=== PATIENT | male | born 1990 | race Caucasian/White ===

== ENCOUNTER 2018-06-17 20:18 | Emergency (ER) | payer SELFPAY ==
[2018-06-17 20:43] VITALS: BP 166/109
--- NOTE | 2018-06-18 00:21 | Emergency Department Report ---
[facility] Chief Complaint: Eye Problems Stated Complaint: EYE PAIN Time Seen by Provider: 06/18/18 00:15 Duration: 3 Days Side: Left Severity: moderate Symptoms: Yes Eye Itching, Yes Eye Redness, Yes Eye Pain, Yes Mucous Drainage, Yes Purulent Drainage, Yes Fever, No Blurred Vision, No Preceding URI, No H/O Allergic Rhinitis, No Contact Lens Use, No Trauma ED Review of Systems ROS: Stated complaint: EYE PAIN Other details as noted in HPI Constitutional: denies: chills, fever Eyes: eye pain, eye discharge. denies: vision change, other ENT: denies: ear pain, throat pain, dental pain, hearing loss, epistaxis, congestion Respiratory: no symptoms reported. denies: cough, shortness of breath, wheezing Cardiovascular: denies: chest pain, palpitations, edema Endocrine: no symptoms reported Gastrointestinal: denies: abdominal pain, nausea, diarrhea Genitourinary: denies: urgency, dysuria Musculoskeletal: as per HPI Skin: denies: rash, lesions Neurological: denies: headache, weakness, paresthesias Psychiatric: denies: anxiety, depression Hematological/Lymphatic: denies: easy bleeding, easy bruising ED Past Medical Hx - Past Medical History Previous Medical History?: No - Surgical History Past Surgical History?: Yes Additional Surgical History: right eye, wisdom teeth - Social History Smoking Status: Never Smoker Substance Use Type: None - Medications Home Medications: Home Medications Medication Instructions Recorded Confirmed Last Taken Type Cetirizine HCl [ZyrTEC] 10 mg PO DAILY PRN #30 tab.rapdis 06/18/18 Unknown Rx Ibuprofen [Motrin 800 MG tab] 800 mg PO Q8HR PRN #30 tablet 06/18/18 Unknown Rx Polymyxin B Sulf/Trimethoprim 2 ml OS Q3H #10 ml 06/18/18 Unknown Rx [Polytrim Eye Drops] [facility] Exam - Exam General: Vital signs noted. No distress. Alert and acting appropriately. Eye Exam: Both Injection, Neither Abnormal Pupil, Neither EOMI HEENT: Yes Nasal Congestion, Yes Pharyngeal Erythema Lungs: Yes Clear Lung Sounds, Yes Good Air Exchange, No Wheezes, No Cough, No Nasal Flaring, No Retractions, No Use of Accessory Muscles ED Course Vital Signs 06/17/18 20:30 Temperature 98.4 F Pulse Rate 84 Respiratory 18 Rate Blood Pressure 166/109 O2 Sat by Pulse 98 Oximetry ED Medical Decision Making - Radiology Data Radiology results: report reviewed, image reviewed this is conjunctivitis with hordeolum left upper eye lid, plan: zyrtec , polytrim, ibuprofen follow up with pcp in 2-3days. pt verbalized agreement and understanding of same . Critical care attestation.: If time is entered above; I have spent that time in minutes in the direct care of this critically ill patient, excluding procedure time. ED Disposition Clinical Impression: Conjunctivitis Qualifiers: Conjunctivitis type: acute Acute conjunctivitis type: bacterial Laterality: left Qualified Code(s): H10.32 - Unspecified acute conjunctivitis, left eye Disposition: TO HOME OR SELFCARE Is pt being admited?: No Does the pt Need Aspirin: No Condition: Critical Instructions: Conjunctivitis (ED) Prescriptions: Cetirizine HCl [ZyrTEC] 10 mg PO DAILY PRN #30 tab.rapdis PRN Reason: daily Ibuprofen [Motrin 800 MG tab] 800 mg PO Q8HR PRN #30 tablet PRN Reason: Pain , Severe (7-10) Polymyxin B Sulf/Trimethoprim [Polytrim Eye Drops] 2 ml OS Q3H #10 ml Referrals: PRIMARY CARE, [Primary Care Provider] - 3-5 Days Forms: Work/School Release Form(ED) Time of Disposition: 00:42
[2018-06-18] MEDS ORDERED: BENADRYL PO ONE ×2 (00:52→00:55)
[2018-06-18] MEDS ORDERED: MOTRIN ONE (00:53)
[2018-06-18] MEDS ORDERED: MOTRIN PO ONE (00:55)
== END 2018-06-18 01:00 | disposition home or self-care (01) ==
LOC: ED 20:18
DX: H10.32 Unspecified acute conjunctivitis, left eye (principal); Z91.041 Radiographic dye allergy status; Z98.890 Other specified postprocedural states
CPT/HCPCS: 99283